=== PATIENT | male | born 1970 | race Caucasian/White ===

== ENCOUNTER 2025-01-09 17:52 | Emergency (ER) | payer MEDICAID, SELFPAY ==
[2025-01-09] VITALS (7 sets, daily range): BP systolic 96–128; BP diastolic 65–91; PULSE 117–135; RESP 12–19; TEMP 36.1; O2SAT 91–100; BMI 26.0
[2025-01-09] MEDS: Naloxone 2 MG/2 ML Syringe IV (18:03)
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
[2025-01-09] MEDS: Etomidate 20 MG/10 ML Vial 30 MG IV (18:07)
[2025-01-09] MEDS: Rocuronium Bromide 50 MG/5 ML Vial 100 MG IV (18:07)
[2025-01-09] MEDS: 0.9% Normal Saline (1000mL) 1,000 ML 999 ML IV ×2 (18:08→18:21)
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
[2025-01-09] MEDS: Cefazolin 2 GM in Syringe IV (18:26)
[2025-01-09] MEDS: Midazolam 50 MG in 0.9% Normal Saline (100mL Bag) 90 ML CONT INF (18:26)
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
[2025-01-09] MEDS: Diphth,Pertuss(Acell),Tet Vac 0.5 ML Vial IM (18:39)
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
== END 2025-01-09 19:05 | disposition short-term general hospital (02) ==
PROVIDERS: Emergency Provider Emergency Medicine; Visit Provider Emergency Medicine
DX: S41.042A Puncture wound with foreign body of left shoulder, initial encounter (principal); Y35.003A Legal intervention involving unspecified firearm discharge, suspect injured, initial encounter; J93.0 Spontaneous tension pneumothorax; Z23 Encounter for immunization
CPT/HCPCS: 32551; G0463; 31500; 51702; 71045; 72170; 86900; 86901; 90715; 93005; 94002; 96365; 96375; 99252; 99285; P9016; A4216; C1887